=== PATIENT | male | born 1995 | race Caucasian/White ===

== ENCOUNTER 2019-10-21 07:23 | Emergency (ER) | payer OTHER ==
[~2019-10-21] VITALS: Ht 172.7 cm; Wt 93.0 kg
[~2019-10-21 07:23] MED LIST: ATARAX25 MG PO; CLARITIN10 MG PO; KENALOG0.5% TP; LEVOFLOXACIN500 MG PO; MOTRIN400 MG PO; NO DAILY MEDS; TYLENOL W/ CODEI5 ML PO
[2019-10-21 07:29] VITALS: BP 142/72
[2019-10-21 07:51] LABS: BASO # 0.1 10*3/uL (0.0-0.1); BASO % 0.5 % (0.0-1.0); EOS # 0.4 10*3/uL (0.0-0.4); EOS % 3.4 % (1.0-4.0); LYMPH # 2.2 10*3/uL (1.3-4.4); LYMPH % 20.2 % (27.0-41.0); MEAN CELL VOLUME 88.6 fl (80.0-94.0); MEAN CORPUSCULAR HGB 29.8 pg (27.0-31.0); MEAN CORPUSCULAR HGB CONC 33.7 g/dl (33.0-37.0); MEAN PLATELET VOLUME 8.8 fl (9.6-12.3); MONO % 8.7 % (3.0-9.0); NEUT # 7.4 10*3/uL (2.3-7.9); NEUT % 66.8 % (47.0-73.0); PLATELET COUNT AUTOMATED 268 10*3/uL (130-400); RED BLOOD COUNT 5.53 10*6/uL (4.50-5.90); RED CELL DISTRI WIDTH 12.4 % (0-14.5); WHITE BLOOD COUNT 11.1 10*3/uL (4.8-10.8)
[2019-10-21 08:02] LABS: ACT PARTIAL THROMBO TIME 30.5 SECONDS (20.0-32.1)
[2019-10-21 08:05] LABS: ALBUMIN 4.3 gm/dl (3.1-4.5); ALKALINE PHOSPHATASE 74 U/L (45-117); BUN 12 mg/dl (7-24); CHLORIDE 106 mmol/L (98-107); CREATININE 1.03 mg/dL (0.70-1.30); POTASSIUM 4.2 mmol/L (3.5-5.1); SGOT/AST 23 IU/L (3-35); SGPT/ALT 39 U/L (12-78); SODIUM 140 mmol/L (136-145); TOTAL PROTEIN 7.9 gm/dL (6.4-8.2)
[2019-10-21] MEDS ORDERED: OFLOXACIN OTIC5 ML OT (09:52)
[2019-10-21] MEDS ORDERED: LEVOFLOXACIN500 MG PO (09:52)
== END 2019-10-21 10:00 | disposition home or self-care (01) ==
LOC: ED 07:23
PROVIDERS: Family Medicine
DX: H72.92 Unspecified perforation of tympanic membrane, left ear (principal); Z79.899 Other long term (current) drug therapy

== ENCOUNTER 2022-03-28 18:16 | Emergency (ER) | payer OTHER ==
[~2022-03-28] VITALS: Ht 170.1 cm; Wt 93.0 kg
[~2022-03-28 18:16] MED LIST changes: +OFLOXACIN OTIC5 ML OT
[2022-03-28 18:17] VITALS: BP 136/80
[2022-03-28] MEDS ORDERED: CYCLOBENZAPRINE10 MG PO (19:14)
[2022-03-28] MEDS ORDERED: NAPROSYN500 MG PO (19:14)
== END 2022-03-28 20:16 | disposition home or self-care (01) ==
LOC: ED 18:16
DX: M54.50 Low back pain, unspecified (principal); M25.461 Effusion, right knee; Z90.89 Acquired absence of other organs

== ENCOUNTER 2022-03-31 09:33 | Emergency (ER) | payer OTHER ==
[~2022-03-31] VITALS: Ht 170.1 cm; Wt 93.0 kg
[~2022-03-31 09:33] MED LIST changes: +CYCLOBENZAPRINE10 MG PO; +NAPROSYN500 MG PO
[2022-03-31 11:49] VITALS: BP 134/65
== END 2022-03-31 19:03 | disposition home or self-care (01) ==
LOC: ED 09:33
DX: M51.36 Other intervertebral disc degeneration, lumbar region (principal); R07.81 Pleurodynia; Z79.899 Other long term (current) drug therapy; V49.88XA Car occupant (driver) (passenger) injured in other specified transport accidents, initial encounter; Y93.89 Activity, other specified; Y92.413 State road as the place of occurrence of the external cause; Y99.9 Unspecified external cause status